=== PATIENT | female | born 1935 | race Caucasian/White ===

== ENCOUNTER 2017-01-15 10:38 | Emergency (ER) | payer OTHER ==
[2017-01-15 11:03] LABS: URINE SOURCE CLEAN CATCH
[2017-01-15 11:10] LABS: MANUAL DIFF NEEDED? NO
[2017-01-15 11:13] LABS: BILIRUBIN URINE NEGATIVE (NEGATIVE); BLOOD URINE NEGATIVE (NEGATIVE); CLARITY SL. CLOUDY (CLEAR); COLOR YELLOW; GLUCOSE URINE NEGATIVE (NEGATIVE); LEUKOCYTES URINE 1+ (NEGATIVE); NITRITE URINE NEGATIVE (NEGATIVE); PROTEIN URINE TRACE mg/dL (NEGATIVE); UROBILINOGEN URINE NORMAL
[2017-01-15 11:18] LABS: BASO% 0.6 % (0.0-0.8); EOS# 0.12 X1000 (0.0-0.7); EOS% 1.9 % (0.0-10.0); HEMATOCRIT 45.6 % (37.0-47.0); HEMOGLOBIN 15.2 g/dL (12.0-16.0); MCHC 33.3 g/dL (33-37); MONO% 9.4 % (1.7-9.3); MPV 10.9 FL (7.4-10.4); NEUT% 63.1 % (42.2-75.2); PLT 191 X1000 (130-400); RBC 4.75 XMIL (4.2-5.4)
[2017-01-15 11:25] LABS: URINE CULTURE PL NEEDED? YES; URINE EPITHELIAL CELLS >10 /HPF (<10); URINE WBC <10 /HPF (<10)
[2017-01-15 11:31] LABS: AGAP 9; ALBUMIN 4.3 g/dL (3.5-5.0); ALKALINE PHOSPHATASE 86 U/L (32-104); AMYLASE 76 U/L (20-200); BUN 14 mg/dL (8-22); CALCIUM 9.9 mg/dL (8.8-10.2); CHLORIDE 102 mmol/L (98-107); COSMO 281; GOT 18 U/L (10-30); GPT 11 U/L (10-36); LIPASE 27 U/L (13-60); POTASSIUM 4.2 mmol/L (3.5-5.1); SODIUM 140 mmol/L (136-145); TCO2 29 mmol/L (25-35); TOTAL PROTEIN 6.8 g/dL (6.3-8.3)
--- NOTE | 2017-01-15 13:19 | PROVIDER DOCUMENTATION ---
HPI-Abdominal Pain/GI Problem - General Source: patient - History of Present Illness-ABD Nature of Presenting Problems: Pt is 81 y/o F presents to the ED with R flank pain. Pt states pain started after she pulled some clothes off the rack at a store. Pt states pain started yesterday. Pt states pain has been constant and sharp since onset. Pt states pain has become worse since yesterday. Pt states breathing deep, movement and palpation makes pain worse. Pt denies SOB and F. Pt denies N/V/D. Abdominal Pain Onset Location: reports: flank (R) Pain Radiation: reports: no radiation Quality of Pain: reports: sharp Severity in ED: reports: mild Onset/Duration: reports: 24 hours ago Timing: reports: still present, constant, getting worse Activities at Onset: reports: light activity Exposure to sick contacts?: No Modifying Factors: improves with: nothing Associated Symptoms: denies: anxiety, arm pain, back/neck pain, chest pain, constipation, cough, diaphoresis, diarrhea, dizziness, EENT symptoms, fatigue, fever/chills, genitourinary problems, headaches, heartburn, joint pain, loss of appetite, malaise, muscle aches, sinus congestion/drainage, nausea, rash, seizure, shortness of breath, sensory/motor loss, pain with inspiration, swelling/mass in abdomen, syncope, vomiting, weakness, trouble walking Last BM: unsure Dark Stools Present?: reports: none noticed Rectal Bleeding: reports: none Rectal Pain: reports: none Emesis Description: reports: none Bruising or Bleeding Gums?: No Similar Symptoms Previously?: Yes Recently seen or treated by another doctor?: No <Antonette Still - Last Filed: 01/15/17 13:56> <Christian Duckworth - Last Filed: 01/15/17 14:07> - General Chief Complaint: Abdominal Pain Stated Complaint: FLANK/ABD PAIN Time Seen by Provider: 01/15/17 12:47 Allergies/Adverse Reactions: Patient Allergies Allergy/AdvReac Type Severity Reaction Status Date / Time No Known Allergies Allergy Verified 07/01/16 19:50 Home Medications: Home Medication List Medication Instructions Recorded Confirmed Last Taken Type Tramadol [Ultram] 50 mg PO 01/15/17 Unknown History Review of Systems - Adult - REVIEW OF SYSTEMS - ADULT Constitutional: denies: chills, fever Eyes: denies: blurred vision, double vision Ears, Nose, Mouth & Throat: denies: ear pain, nose pain, throat pain Cardiovascular: denies: chest pain, heart murmur, irregular heart rate Respiratory: denies: cough, shortness of breath, wheezing Gastrointestinal: denies: abdominal pain, diarrhea, nausea, vomiting Genitourinary: reports: flank pain (R). denies: dysuria, hematuria Musculoskeletal: denies: bone pain, joint pain, neck pain Integumentary: denies: hives, itching Neurological: denies: dizziness/vertigo, headache/migraines Psychiatric: reports: no symptoms reported Endocrine: reports: no symptoms reported Hematologic/Lymphatic: reports: no symptoms reported Allergic/Immunologic: reports: no symptoms reported All Other Systems: Reviewed and Negative <Antonette Still - Last Filed: 01/15/17 13:56> Past History - Adult - PAST MEDICAL HISTORY-ADULT Review of Records: reports: Nursing Assessment Review, Medications Reviewed, Social history reviewed & non-contributory. Major Childhood Illnesses: reports: denies history Cardiovascular: reports: denies history Respiratory: reports: denies history Gastrointestinal: reports: denies history Obstetrical/Gynecological: reports: denies history Genitourinary: reports: denies history Musculoskeletal: reports: denies history Neurological: reports: denies history Endocrine/Immune: reports: denies history Other Conditions: reports: denies history - PRIOR SURGERIES/PROCEDURES Surgical/Procedure History: reports: joint replacement, back/neck - IMMUNIZATION STATUS Childhood Immunizations: See Nurse Assessment Flu Vaccine: See Nurse Assessment - FAMILY HISTORY Family History: reviewed, not pertinent - SOCIAL HISTORY Smoking: denies Substance Use: denies Living Situation: family <Antonette Still - Last Filed: 01/15/17 13:56> Physical Exam-General - PHYSICAL EXAM-ADULT Initial Vital Signs Reviewed: Yes - CONSTITUTIONAL General Appearance: appears well, alert, no apparent distress - EYES Eyes: PERRL/EOMI, pink conjunctivae, fundi clear, no AV nicking - HEAD, EARS, NOSE, MOUTH & THROAT HENMT: normocephalic/atraumatic, moist mucous membranes, normal ENT inspection, TMs normal, pharynx normal - NECK Neck: non-tender, full range of motion, supple, normal inspection - RESPIRATORY Respiratory: chest non-tender, lungs clear, normal breath sounds, no pleuratic chest pain, no respiratory distress, no accessory muscle use - CARDIOVASCULAR Cardiovascular: normal peripheral pulses, regular rate, rhythm, no edema, no gallop, no JVD, no murmur - GASTROINTESTINAL (ABDOMEN) Abdominal Exam: normal bowel sounds, soft, no organomegaly, no pulsatile mass, tenderness (R flank) - LYMPHATIC Lymphatic: no adenopathy - MUSCULOSKELETAL Back Exam: normal inspection, no CVA tenderness, no vertebral tenderness Extremity: normal range of motion, non-tender, normal gait, normal inspection, no pedal edema, no calf tenderness, normal capillary refill - SKIN Integumentary: normal color, normal turgor, warm/dry - NEUROLOGIC Neurologic: grossly normal - PSYCHIATRIC Psych/Mental Status: normal mood/affect, oriented x 3 <Antonette Still - Last Filed: 01/15/17 13:56> Progress - PLAN OF CARE/RESULTS Progress/Plan/Lab Results: Laboratory Tests 01/15/17 01/15/17 01/15/17 11:00 11:05 11:05 WBC 6.40 RBC 4.75 Hgb 15.2 Hct 45.6 MCV 96.0 MCH 32.0 H MCHC 33.3 RDW Std Deviation 12.4 Plt Count 191 MPV 10.9 H Immature Gran % (Auto) 0.0 Neut % (Auto) 63.1 Lymph % (Auto) 25.0 [place] % (Auto) 9.4 H Eos % (Auto) 1.9 Baso % (Auto) 0.6 Immature Gran # (Auto) 0.00 Neut # (Auto) 4.04 Lymph # (Auto) 1.60 [place] # (Auto) 0.60 H Eos # (Auto) 0.12 Baso # (Auto) 0.04 Sodium 140 Potassium 4.2 Chloride 102 Carbon Dioxide 29 Anion Gap 9 BUN 14 Creatinine 0.7 Estimated GFR/1.73 m2 > 60 BUN/Creatinine Ratio 20 Glucose 112 H Calculated Osmolality 281 Calcium 9.9 Total Bilirubin 0.70 AST 18 ALT 11 Alkaline Phosphatase 86 Total Protein 6.8 Albumin 4.3 Globulin 3.0 Albumin/Globulin Ratio 2.0 Amylase 76 Lipase 27 Urine Source CLEAN CATCH Urine Color YELLOW Urine Clarity SL. CLOUDY A Urine pH 5.0 Ur Specific [place] 1.020 Urine Protein TRACE A Urine Ketones NEGATIVE Urine Blood NEGATIVE Urine Nitrite NEGATIVE Urine Bilirubin NEGATIVE Urine Urobilinogen NORMAL Urine Microscopic RBC Not Reportable Urine WBC 1+ A Urine Microscopic WBC <10 Ur Epithelial Cells >10 A Urine Bacteria 2+ Urine Glucose NEGATIVE Orders Category Date Time Status RIBS UNILAT W/PA CHEST RIGHT [RAD] Stat Exams 01/15/17 13:07 Ordered AMYLASE [CHEM] Stat Lab 01/15/17 11:05 Completed CBC WITH DIFF [HEME] Stat Lab 01/15/17 11:05 Completed COMPREHENSIVE METABOLIC PANEL [CHEM] Stat Lab 01/15/17 11:05 Completed LIPASE [CHEM] Stat Lab 01/15/17 11:[address] W/POSS RFLX CULT [URINALYSIS] Stat Lab 01/15/17 11:00 Completed URINE CULTURE [RM] Routine Lab 01/15/17 11:25 Ordered Vital Signs - 24 hr 01/15/17 01/15/17 10:46 12:43 Temperature 98 F Pulse Rate 94 H 67 Respiratory 18 20 Rate Blood Pressure 148/72 142/84 O2 Sat by Pulse 99 97 Oximetry - XRAY 1 XRAY: Right XRAY Study: Chest, Ribs Impression: Normal XRAY Interpretation: nad <Antonette Still - Last Filed: 01/15/17 13:56> Departure <Antonette Still - Last Filed: 01/15/17 13:56> - Departure Time of Disposition Order: 13:59 Certified Medical Emergency: Emergent <Christian Duckworth - Last Filed: 01/15/17 14:07> - Departure DIAGNOSIS: Contusion of rib on right side Qualifiers: Encounter type: initial encounter Qualified Code(s): S20.211A - Contusion of right front wall of thorax, initial encounter Disposition: HOME 01 Condition: Good Additional Instructions: ED Follow Up Instructions: You have been treated by a care provider in the Emergency Department. These instructions are being provided to you so you can have an understanding of how to care for yourself upon discharge. Upon discharge from the Emergency Department, you are responsible for making arrangements for follow-up care by a physician of your choice. Take all prescribed medications as directed. Return to the Emergency Department immediately for any new or worsening symptoms. You may call the Physician Referral phone number at [phone] to obtain a list of Physicians who are taking new patients. Instructions: Rib Contusion Attestation - Scribe Verification/Attestation Scribe:: Antonette Still Acting as Scribe for:: Christian Duckworth Scribe documention review:: This chart was documented by a scribe and accurately reflects the service the provider performed and the decisions made by the provider. <Antonette Still - Last Filed: 01/15/17 13:56> Physician Attestation - Physician Attestation I, the provider, attest to the following statement:: Christian Duckworth Physician documentation Attestation:: This documentation recorded by the scribe accurately reflects the service I personally performed and the decisions made by me. <Christian Duckworth - Last Filed: 01/15/17 14:07>
[2017-01-15 14:25] VITALS: BP 149/82
--- NOTE | 2017-01-15 14:43 | Diag Imaging Result Document ---
PROCEDURE NAME: RIBS UNILAT W/PA CHEST RIGHT - 01/15/2017 PA CHEST WITH RIGHT RIB SERIES, 6 VIEWS: FINDINGS: There is COPD. There is apical pleural thickening bilaterally. There is no evidence of pneumothorax or pleural fluid collections. The heart size and pulmonary vascularity appear to be within normal limits. The ribs appear to be intact. Compared to 07/01/2016 considering differences in inspiration, there has been no significant change. IMPRESSION: COPD and old granulomatous changes. No evidence of acute disease.
== END 2017-01-15 14:25 | disposition home or self-care (01) ==
LOC: P.ED 10:38
DX: S20.211A Contusion of right front wall of thorax, initial encounter (principal); R10.9 Unspecified abdominal pain; R10.819 Abdominal tenderness, unspecified site; Z96.60 Presence of unspecified orthopedic joint implant
CPT/HCPCS: 71101; 80053; 81001; 82150; 83690; 85025; 87088

== ENCOUNTER 2019-06-28 15:21 | Inpatient (IN) ==
--- NOTE | 2019-06-28 16:37 | Diag Imaging Result Doc PS360 ---
EXAM: XRAY HIP W/PELVIS BILAT 3-4VWS 06/28/2019 HISTORY: FELL TECHNIQUE: AP pelvis and bilateral hips seven views COMMENT: There is an intramedullary la nena in the left femur. There has been internal fixation of an intertrochanteric fracture on the left which was demonstrated on 07/01/2016. There is generalized osteopenia. There are degenerative changes in the right hip including osteophytes in the femoral head. There is also apparent calcium pyrophosphate deposition in the symphysis pubis. There is a fracture of the inferior pubic ramus on the left of uncertain age which was not present at the time of the study in 2016. There are degenerative disc changes at L3-4, L4-5, and L5-S1. 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 Fracture of the inferior pubic ramus on the left of uncertain age. Old fracture of the proximal left femur status post internal fixation. Electronically signed by Shady Noland 06/28/2019 4:35 PM
--- NOTE | 2019-06-28 18:11 | PROVIDER DOCUMENTATION ---
This chart was entered by Alan Pires Scribstefanie, acting as scribe for Darlyn Bentley MD. HPI-Musculoskeletal Pain/Inj - GENERAL Chief Complaint: Hip Injury Stated Complaint: FALL / LOWER EXT Time Seen by Provider: 06/28/19 16:34 Source: patient - HX OF PRESENT ILLNESS-MUSKULOSKELTAL Nature of Presenting Problem: Pt is a 83 yof who presents to the ED with a CC of fall injury. Pt states she tripped on a bench and landed on her left hip. Pt reports a hx of hip replacement surgery and a back surgery. Pt reports no loss of consciousness or head injury. Pt has a hx of dementia. Pt states she has a orthopedics appointment on Friday. Quality of Pain: reports: aching, dull Severity in ED: mild Onset/Duration: 1-3 hours ago Timing: still present Any recent injury?: Yes Locality of Occurance: Home Similar Symptoms Previously?: No Recently seen or treated by another doctor?: No - FALL INJURY Location of Pain/Injury: reports: pelvis Pain Radiation: reports: legs (upper) Reason for Fall: reports: tripped Symptoms prior to fall:: reports: none Loss of Consciousness: no loss of consciousness Injury Associated Symptoms: reports: unable to bear weight, weakness, trouble walking - HIP/PELVIS PAIN/INJURY Hip Pain Location: reports: hip (L), pelvis Pain Radiation: reports: upper legs Context / Method of Injury: reports: fall Associated Symptoms: reports: weakness in legs/feet Review of Systems - Adult - REVIEW OF SYSTEMS - ADULT Constitutional: reports: see HPI Eyes: reports: no symptoms reported Ears, Nose, Mouth & Throat: reports: no symptoms reported Cardiovascular: reports: no symptoms reported Respiratory: reports: no symptoms reported Gastrointestinal: reports: no symptoms reported Genitourinary: reports: no symptoms reported Musculoskeletal: reports: see HPI, joint pain, muscle weakness Integumentary: reports: no symptoms reported Neurological: reports: no symptoms reported Psychiatric: reports: no symptoms reported Endocrine: reports: no symptoms reported Hematologic/Lymphatic: reports: no symptoms reported Allergic/Immunologic: reports: no symptoms reported All Other Systems: Reviewed and Negative Past History - Adult - PAST MEDICAL HISTORY-ADULT Review of Records: reports: Old Records Reviewed, Nursing Assessment Review, Medications Reviewed, Social history reviewed & non-contributory. Major Childhood Illnesses: reports: denies history Cardiovascular: reports: denies history Respiratory: reports: denies history Gastrointestinal: reports: denies history Obstetrical/Gynecological: reports: denies history Genitourinary: reports: denies history Musculoskeletal: reports: denies history Neurological: reports: dementia Endocrine/Immune: reports: denies history Other Conditions: reports: denies history - PRIOR SURGERIES/PROCEDURES Surgical/Procedure History: reports: joint replacement, back/neck - IMMUNIZATION STATUS Childhood Immunizations: See Nurse Assessment Flu Vaccine: See Nurse Assessment - FAMILY HISTORY Family History: reviewed, not pertinent - SOCIAL HISTORY Smoking: denies, non-smoker Substance Use: none/never, denies Alcohol Use Frequency: never Physical Exam-Injury Related - Physical Exam-Injury Related General Appearance: alert, mild distress Eyes: PERRL/EOMI, pink conjunctivae Neck: non-tender, full range of motion Respiratory: chest non-tender, lungs clear, normal breath sounds, no pleuratic chest pain Cardiovascular: normal peripheral pulses, regular rate, rhythm, no edema, no gallop Abdominal Exam: non tender, soft Extremity: other (Hip pain) Integumentary: normal color, warm/dry Neurologic: grossly normal, no motor/sensory deficits Psych/Mental Status: normal mood/affect, normal thought content, normal thought process, oriented x 3 Progress - PLAN OF CARE/RESULTS Progress/Plan/Lab Results: Vital Signs - 8 hr 06/28/19 15:31 Temperature 98.1 F Pulse Rate 69 Respiratory Rate 16 Blood Pressure 124/77 O2 Sat by Pulse Oximetry 95 Orders Category Date Time Status CT PELVIS W/O CONTRAST [CT] Stat Exams 06/28/19 17:04 Taken XRAY HIP W/PELVIS BILAT 3-4VWS [RAD] Stat Exams 06/28/19 15:38 Completed CBC WITH DIFF [HEME] Routine Lab 06/29/19 05:00 Ordered CBC WITH DIFF [HEME] Stat Lab 06/28/19 17:55 Ordered COMPREHENSIVE METABOLIC PANEL [CHEM] Routine Lab 06/29/19 05:00 Ordered COMPREHENSIVE METABOLIC PANEL [CHEM] Stat Lab 06/28/19 17:55 Uncollected Transfer/Admit Order [TRANSFER] Routine Transfer 06/28/19 17:49 Ordered - XRAY 1 XRAY: Bilateral XRAY Study: Pelvis, Hip Impression: See EMR Report (EXAM: XRAY HIP W/PELVIS BILAT 3-4VWS 06/28/2019 HISTORY: FELL TECHNIQUE: AP pelvis and bilateral hips seven views COMMENT: There is an intramedullary la nena in the left femur. There has been internal fixation of an intertrochanteric fracture on the left which was demonstrated on 07/01/2016. There is generalized osteopenia. There are degenerative changes in the right hip including osteophytes in the femoral head. There is also apparent calcium pyrophosphate deposition in the symphysis pubis. There is a fracture of the inferior pubic ramus on the left of uncertain age which was not present at the time of the study in 2016. There are degenerative disc changes at L3-4, L4- 5, and L5-S1. 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 Fracture of the inferior pubic ramus on the left of uncertain age. Old fracture of the proximal left femur status post internal fixation. Electronically signed by Shady Noland 06/28/2019 4:35 PM 06/28/19 1635 Interpreting Physician: Shady Noland MD Dictated Date/Time: 06/28/19 1631 cc: Darlyn Bentley MD; Babak Estes MD) - CONSULTS/PCP/HOSPITALIST Notification #1 *Consult/PCP/Hospitalist*: Dr. Sneed Time Discussed: 16:45 Reason/Comments: Made aware of pt and says he will call back Consult Disposition: other #2 Consult: Dr. Sneed Time Discussed: 16:56 Reason/Comments: Made aware of pt and states to admit the pt to hospitalist. Consult Disposition: Admit Departure - Departure Date of Disposition Decision: 06/28/19 Time of Disposition Decision: 18:10 DIAGNOSIS: Inferior pubic ramus fracture Disposition: ADMITTED INPATIENT 09 Certified Medical Emergency: Emergent Condition: Serious Additional Freetext Instructions: ED Follow Up Instructions: You have been treated by a care provider in the Emergency Department. These instructions are being provided to you so you can have an understanding of how to care for yourself upon discharge. Upon discharge from the Emergency Department, you are responsible for making arrangements for follow-up care by a physician of your choice. Take all prescribed medications as directed. Return to the Emergency Department immediately for any new or worsening symptoms. You may call the Physician Referral phone number at [phone] to obtain a list of Physicians who are taking new patients. Referrals and Follow-Ups: Babak Estes MD [Primary Care Provider] - - Critical Care Note This patient required my direct & personal management of CC.: No Attestation - Physician/ ZENA Attestation Patient care was provided by Advanced Practice Provider:: No The physician spent face to face time with patient:: Yes Advanced Practice Provider documentation review:: Supervising physician onsite and consulted in the evaluation and care of this patient. The physician did have a face to face encounter with the patient. This chart was documented by the indicated scribe, (Alan Pires, Carolineibstefanie) and accurately reflects the services I performed and decisions made by me, Darlyn Bentley MD, as attested by the provider's signature.
--- NOTE | 2019-06-28 18:15 | Diag Imaging Result Doc PS360 ---
EXAM: CT PELVIS W/O CONTRAST HISTORY: pelvis fracture TECHNIQUE: CT pelvis without contrast COMPARISON: Plain films taken earlier and CT from 07/01/2016 FINDINGS: Fixation of the prior intertrochanteric fracture of the left hip on the prior CT. The bones are osteopenic. There is a fracture to the left side of the sacrum. No displacement. There are also acute fractures to the left superior and inferior pubic rami. No widening of the pubic symphysis. Long-standing arthritis to each hip. IMPRESSION: Fractures to the left superior and inferior pubic rami and to the left side of the sacrum. This exam was performed using automated exposure control, adjustment of mA or kV according to patient size, and/or use of iterative reconstruction technique. Electronically signed by Jonnathan Hood 06/28/2019 6:13 PM
--- NOTE | 2019-06-28 18:43 | HISTORY AND PHYSICAL ---
ADDENDUM: Patient seen and examined by myself. Full note dictated and discussed with the nurse practitioner. Patient was ambulating earlier. She had gone to her primary care and she was actually shopping when she tripped and fell. She landed on her left hip and started having immediate pain. Does have a known history of dementia. Her x-rays showed a pubic rami fracture as well as an old fracture of the left proximal femur status post internal fixation. We are going to transfer her to [facility] for ortho's input. Further orders as needed. cc: Jatinder Bernstein MD
--- NOTE | 2019-06-28 18:48 | HISTORY AND PHYSICAL ---
CHIEF COMPLAINT: Fall. HISTORY OF PRESENT ILLNESS: This is an 83-year-old female with a history of dementia who presented to the emergency room complaining of left hip pain. The patient states that she got her foot stuck in a bench, lost her footing, and fell. She landed on her left hip and ever since she has had left hip pain with movement and she is unable to bear weight. The patient does have a history of left hip fracture, undergoing a closed reduction with intramedullary fixation of the hip in June of 2016. X-ray of the hip and pelvis bilateral revealed osteoarthritis in both hips, fracture of the inferior pubic ramus on the left of uncertain age, and an old fracture of the proximal left femur status post internal fixation. PAST MEDICAL HISTORY: Osteoporosis, dementia. PAST SURGICAL HISTORY: Back surgery years ago and intramedullary nailing of the left femur 2016. SOCIAL HISTORY: She denies any alcohol, tobacco, or illicit drug use. ALLERGIES: No known drug allergies. HOME MEDICATIONS: None. REVIEW OF SYSTEMS: Discussed with patient with pertinent positives stated in HPI. She denied any syncope, dizziness, chest pain, palpitations, any fevers, chills, shortness of breath, cough, nausea, vomiting, diarrhea, constipation, black or bloody vomitus or stools, hematuria, dysuria, frequency, urgency. PHYSICAL EXAMINATION: GENERAL: This is an 83-year-old female who is lying on the bed in the ER, in no distress. VITAL SIGNS: Blood pressure is 124/77 with heart rate of 69, respirations are 18, temperature is 98.1 degrees oral, with room air saturations 96%. HEENT: Head is normocephalic, atraumatic. Mucous membranes are moist. NECK: Supple. Trachea midline. CARDIOVASCULAR: Regular rate and rhythm. S1 and S2 appreciated. She has no lower extremity edema. Peripheral pulses are palpable x4 extremities. Calves are nontender to palpation. PULMONARY: Breath sounds are clear. No increased work of breathing noted. Chest rises and falls symmetric with respiration. Chest wall is nontender to palpation. GASTROINTESTINAL: Abdomen is soft, nontender, nondistended. Bowel sounds in all 4 quadrants. NEUROLOGIC: She is alert and oriented. SKIN: Warm and dry. LABS: No labs have been drawn. DIAGNOSTICS: X-ray revealed osteoarthritis in both hips, fracture of the inferior pubic ramus on the left of uncertain age. CT of the pelvis reveals fractures to the left superior and inferior pubic rami and to the left side of the sacrum. ASSESSMENT: 1. Fall with subsequent fracture to left superior and inferior pubic rami and the left side of the sacrum. 2. Dementia. PLAN: The patient will be admitted to [place]. consult Dr. Sneed and Orthopedics. CBC and CMP today and repeat in the morning. Telemetry, Zofran for nausea. GI prophylaxis, Prilosec. Plan discussed with Dr Bernstein. Further treatments pending hospital course. Dictated by KELTON Albarran for Jatinder Bernstein MD cc: KELTON Albarran MD [facility]
[2019-06-28 19:13] LABS: BASO# 0.01 X1000 (0.0-0.2); BASO% 0.1 % (0.0-0.8); HEMATOCRIT 40.8 % (37.0-47.0); HEMOGLOBIN 13.7 g/dL (12.0-16.0); IMM GRAN# 0.01 X1000 (0.0-0.04); IMM GRAN% 0.1 % (0.0-0.5); LYMPH# 0.61 X1000 (1.2-3.4); MCH 31.6 PG (27-31); MCHC 33.6 g/dL (33-37); MCV 94.2 FL (81-99); MONO# 0.52 X1000 (0.11-0.59); MONO% 5.9 % (1.7-9.3); NEUT# 7.62 X1000 (1.4-6.5); NEUT% 86.9 % (42.2-75.2); PLT 133 X1000 (130-400); RBC 4.33 XMIL (4.2-5.4); RDW 12.6 % (11.5-14.5); WBC 8.77 X1000 (4.8-10.8)
[2019-06-28 19:16] LABS: AGAP 12; ALKALINE PHOSPHATASE 69 U/L (32-104); BUN 16 mg/dL (8-22); CALCIUM 8.9 mg/dL (8.8-10.2); CHLORIDE 105 mmol/L (98-107); COSMO 287; CREATININE 0.6 mg/dL (0.5-0.9); ESTIMATED GFR > 60; GLUCOSE 179 mg/dL (70-104); GOT 29 U/L (10-30); GPT 20 U/L (10-36); SODIUM 141 mmol/L (136-145); TCO2 24 mmol/L (25-35); TOTAL PROTEIN 6.4 g/dL (6.3-8.3)
[2019-06-28] MEDS ORDERED: ZOFRAN IV PRN (19:57)
[2019-06-28 20:02] LABS: LYMPHS 6 % (21-51); MONO 4 % (1-9); SEGS 90 % (42-75)
[2019-06-29] MEDS: TYLENOL PO PRN ×2 (02:19→10:09)
[2019-06-29 03:28] LABS: URINE SOURCE CLEAN CATCH
[2019-06-29 03:44] LABS: BILIRUBIN URINE NEGATIVE (NEGATIVE); BLOOD URINE NEGATIVE (NEGATIVE); COLOR YELLOW; GLUCOSE URINE TRACE mg/dL (NEGATIVE); KETONE URINE NEGATIVE (NEGATIVE); LEUKOCYTES URINE NEGATIVE (NEGATIVE); NITRITE URINE NEGATIVE (NEGATIVE); PH URINE 5.5; PROTEIN URINE TRACE mg/dL (NEGATIVE); SP GRAVITY URINE 1.029; TURBIDITY URINE CLEAR (CLEAR); UROBILINOGEN URINE NORMAL (NORMAL)
[2019-06-29 03:55] LABS: UR EPITHELIAL CELLS <10 /HPF (<10); URINE BACTERIA NEGATIVE /HPF; URINE RBC <10 /HPF (<10); URINE WBC <10 /HPF (<10)
[2019-06-29 04:24] LABS: URINE CASTS NONE SEEN; URINE CRYSTALS CA OXALATE PRESENT; URINE SMALL ROUND CELLS NONE SEEN; URINE YEAST NONE SEEN
[2019-06-29 06:07] LABS: BASO# 0.03 X1000 (0.0-0.2); BASO% 0.4 % (0.0-0.8); EOS# 0.13 X1000 (0.0-0.7); EOS% 1.9 % (0.0-10.0); HEMATOCRIT 39.2 % (37.0-47.0); HEMOGLOBIN 13.1 g/dL (12.0-16.0); LYMPH# 1.06 X1000 (1.2-3.4); LYMPH% 15.3 % (20.5-51.1); MCH 31.4 PG (27-31); MCHC 33.4 g/dL (33-37); MONO# 0.61 X1000 (0.11-0.59); MONO% 8.8 % (1.7-9.3); MPV 11.7 FL (7.4-10.4); NEUT# 5.08 X1000 (1.4-6.5); NEUT% 73.6 % (42.2-75.2); PLT 135 X1000 (130-400); RBC 4.17 XMIL (4.2-5.4); RDW 12.7 % (11.5-14.5); WBC 6.91 X1000 (4.8-10.8)
[2019-06-29 06:22] LABS: AGAP 9; ALB/GLOB RATIO 1.7; ALBUMIN 3.7 g/dL (3.5-5.0); ALKALINE PHOSPHATASE 60 U/L (32-104); BUN 13 mg/dL (8-22); CALCIUM 8.9 mg/dL (8.8-10.2); CHLORIDE 107 mmol/L (98-107); COSMO 281; CREATININE 0.5 mg/dL (0.5-0.9); ESTIMATED GFR > 60; GLUCOSE 124 mg/dL (70-104); GOT 26 U/L (10-30); GPT 18 U/L (10-36); POTASSIUM 3.5 mmol/L (3.5-5.1); SODIUM 140 mmol/L (136-145); TCO2 24 mmol/L (25-35); TOTAL PROTEIN 5.9 g/dL (6.3-8.3)
[2019-06-29] MEDS: PRILOSEC PO SCH (06:51)
--- NOTE | 2019-06-29 10:26 | EKG Report ---
Test Performed on : 06/29/2019 10:17:46 AM Test Reason : preop Blood Pressure : / mmHG Vent. Rate : 060 BPM Atrial Rate : 060 BPM P-R Int : 196 ms QRS Dur : 088 ms QT Int : 436 ms P-R-T Axes : 069 -33 064 degrees QTc Int : 436 ms Normal sinus rhythm. 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 are no longer present Questionable change in initial forces of Septal leads Confirmed by Jean-Claude HAMEED, Leonard Anguiano ([id number]) on 06/29/2019 12:07:38 PM
--- NOTE | 2019-06-29 10:30 | Diag Imaging Result Doc PS360 ---
EXAM: CHEST-PORTABLE 06/29/2019 HISTORY: dyspnea TECHNIQUE: AP portable at 1022 COMMENT: The appearance of the chest has not changed significantly since 01/15/2017. The lungs are clear and the heart and pulmonary vascularity are within normal limits. IMPRESSION: Stable chest. Electronically signed by Shady Noland 06/29/2019 10:28 AM
--- NOTE | 2019-06-29 13:37 | PROGRESS NOTE ---
DATE: 06/29/2019 SUBJECTIVE: The patient is resting comfortably in bed. She has no complaints at this time. OBJECTIVE: Vital Signs: Temperature 97.5 degrees, blood pressure 119/66, heart rate 64, respirations 16, O2 saturation is 95% on room air. General: This is a chronically ill-appearing elderly female, lying in bed in no acute distress. Heart: S1, S2 normal. Regular rate and rhythm. Lungs: Clear to auscultation bilaterally. Abdomen: Positive bowel sounds. Soft, nontender, nondistended. Extremities: No edema, no cyanosis. Neurologic: The patient is alert and oriented x3. DIAGNOSTIC STUDIES: Sodium 140, potassium 3.5, chloride 107, CO2 of 24, BUN 13, creatinine 0.5. White blood cell count 6.9, hemoglobin 13, hematocrit 39, platelets 135,000. UA: Trace protein. Chest x-ray shows no acute abnormality. ASSESSMENT AND PLAN: 1. Fractures of the left superior and inferior pubic rami and the left side of the sacrum. We will await further recommendations from the orthopedic surgeon. 2. Dementia. Aware. 3. Deep vein thrombosis prophylaxis. The patient is currently on SCDs. cc: Romina De La O MD
[2019-06-29] MEDS ORDERED: STERILE WATER INJ. INJ ONE (15:31)
[2019-06-29] MEDS ORDERED: GEODON IM ONE (15:31)
--- NOTE | 2019-06-29 18:43 | ORTHOPAEDICS CONSULTATION ---
DATE: 06/29/2019 HISTORY OF PRESENT ILLNESS: Ms Cage 83-year-old female with a history of dementia presented emergency department with left hip pain. It is hard to get exactly what the story was but it sounds like there may have been a fall. She had a hip fracture back in June 2016 and underwent trochanteric femoral nailing and then she started to have some pain on this left side. ER worked her up and found superior and inferior pubic ramus fracture as well as a left sacral fracture and she was admitted per the medicine service. PAST MEDICAL HISTORY: Dementia and osteoporosis. PAST SURGICAL HISTORY: Back surgery and intramedullary nailing of the femur 2016. SOCIAL HISTORY: She denies any tobacco or alcohol use. ALLERGIES: No known drug allergies. HOME MEDICATIONS: Per the medical record. REVIEW OF SYSTEMS: Positive for this left hip pain. All other systems are essentially negative. PHYSICAL EXAMINATION: Pleasant elderly female lying in bed, no acute distress.Head and Neck: Normocephalic, atraumatic. Respirations: Nonlabored breathing. Cardiovascular: Regular pulse. Abdomen: Nondistended. A little bit tender palpation when I push on the iliac wings. No tenderness palpation down either leg. She is able to move the toes up and down very well. She has good sensation to light touch to the toes. CT imaging shows a nondisplaced inferior and superior pubic ramus fracture and nondisplaced sacral ala fracture. ASSESSMENT: 1. Left sacral ala fracture. 2. Left inferior and superior pubic rami fractures. PLAN: Ms. Cage can be weightbearing as tolerated bilateral lower extremities. Physical therapy will need to work with her getting her up and moving and then I discussed with her that it may be painful for about a 6 to 8 week period while these fractures heal but she can be weight bear as tolerated the whole time. She follow with me in clinic on an outpatient basis in about 2 weeks after she is discharged. cc: Gui Khan MD
[2019-06-30 05:35] LABS: HEMOGLOBIN 13.5 g/dL (12.0-16.0); MCH 31.4 PG (27-31); MCHC 33.8 g/dL (33-37); MPV 11.5 FL (7.4-10.4); RBC 4.3 XMIL (4.2-5.4); RDW 12.8 % (11.5-14.5); WBC 6.65 X1000 (4.8-10.8)
[2019-06-30 05:51] LABS: AGAP 10; BUN 9 mg/dL (8-22); CALCIUM 9.1 mg/dL (8.8-10.2); CHLORIDE 108 mmol/L (98-107); COSMO 285; CREATININE 0.5 mg/dL (0.5-0.9); ESTIMATED GFR > 60; GLUCOSE 119 mg/dL (70-104); POTASSIUM 3.7 mmol/L (3.5-5.1); SODIUM 143 mmol/L (136-145); TCO2 25 mmol/L (25-35)
[2019-06-30] MEDS: PRILOSEC PO SCH (06:10)
[2019-06-30] MEDS: ARICEPT PO SCH (09:13)
[2019-06-30] MEDS: NAMENDA XR PO SCH (09:13)
[2019-06-30] MEDS: MIRALAX PO SCH ×2 (09:18→21:40)
[2019-06-30] MEDS: COLACE PO SCH (09:18)
[2019-06-30] MEDS: SENOKOT PO SCH (09:19)
--- NOTE | 2019-06-30 14:05 | PROGRESS NOTE ---
DATE: 06/30/2019 SUBJECTIVE: The patient is resting comfortably in bed. She complains of pain in her left hip when she tries to stand or move. OBJECTIVE: Vital Signs: Temperature 98.6 degrees, blood pressure 137/82, heart rate 85, respirations 18, O2 saturation 98% on room air. General: This is a chronically ill-appearing elderly female, lying in bed in no acute distress. Heart: S1, S2 normal. Regular rate and rhythm. Lungs: Equal air entry bilaterally. No wheezing. No rales. No rhonchi. Abdomen: Positive bowel sounds. Soft, nontender, nondistended. Extremities: No edema, no cyanosis. Neurologic: The patient is oriented to self and place. LABORATORY DATA: White blood cell count 6.6, hemoglobin 13, hematocrit 40, platelets 133,000. Sodium 143, potassium 3.7, chloride 108, CO2 25, BUN 9, creatinine 0.5. ASSESSMENT AND PLAN: 1. A fracture of the left superior and inferior pubic rami in the left side of the sacrum. The patient has been seen by the orthopedic surgeon who has recommended nonoperative management. He is recommending physical therapy. We will consult with [facility] for inpatient rehab placement. 2. Dementia. Continue on Aricept. 3. Constipation. Continue on MiraLAX and Senokot. 4. Deep vein thrombosis prophylaxis. We will start the patient on Lovenox. cc: Romina De La O MD
[2019-06-30] MEDS: LOVENOX SUBQ SCH (14:52)
[2019-07-01] MEDS: TYLENOL PO PRN (00:14)
[2019-07-01] MEDS ORDERED: HALDOL IM PRN (01:22)
[2019-07-01] MEDS ORDERED: HALDOL IM ONE (01:29)
[2019-07-01] MEDS: PRILOSEC PO SCH ×2 (06:17→09:44)
[2019-07-01 06:20] LABS: AGAP 12; BUN 10 mg/dL (8-22); CALCIUM 8.3 mg/dL (8.8-10.2); CHLORIDE 106 mmol/L (98-107); COSMO 287; CREATININE 0.5 mg/dL (0.5-0.9); ESTIMATED GFR > 60; GLUCOSE 120 mg/dL (70-104); POTASSIUM 3.9 mmol/L (3.5-5.1); SODIUM 144 mmol/L (136-145); TCO2 26 mmol/L (25-35)
[2019-07-01] MEDS ORDERED: FLEET MINERAL OIL ENEMA PR ONE (09:18)
[2019-07-01] MEDS: MIRALAX PO SCH (09:35)
[2019-07-01] MEDS: COLACE PO SCH (09:36)
[2019-07-01] MEDS: ARICEPT PO SCH (09:36)
[2019-07-01] MEDS: NAMENDA XR PO SCH (09:36)
[2019-07-01] MEDS: SENOKOT PO SCH (09:42)
--- NOTE | 2019-07-01 09:58 | PROGRESS NOTE ---
DATE: 07/01/2019 SUBJECTIVE: The patient was noted to be agitated last night. She received Haldol early this morning and she is currently resting. OBJECTIVE: Vital Signs: Temperature 97 degrees, blood pressure 139/81, heart rate 76, respirations 18, O2 saturation is 100% on room air. General: This is a chronically ill- appearing, elderly female lying in bed, in no acute distress. Heart: S1, S2 normal. Regular rate and rhythm. Lungs: Clear to auscultation bilaterally. No wheezing. No rales. No rhonchi. Abdomen: Positive bowel sounds. Soft, nontender, nondistended. Extremities: No edema. No cyanosis. Neurologic: The patient is oriented to self only. Labs: Reviewed. ASSESSMENT AND PLAN: 1. Left superior and inferior pubic rami fracture. Continue with nonoperative management. Continue with physical therapy. The patient will need inpatient rehab placement. 2. Dementia. Continue on Aricept. 3. Constipation. Continue on the scheduled laxative therapy. Will also add an enema to be given today. 4. Deep vein thrombosis prophylaxis. Continue on Lovenox. cc: Romina De La O MD [facility]TDD
[2019-07-01] MEDS: LOVENOX SUBQ SCH (14:02)
--- NOTE | 2019-07-01 17:00 | Diag Imaging Result Doc PS360 ---
ABDOMEN FLAT/UPRIGHT - 07/01/2019 INDICATION: constipation COMPARISON: None FINDINGS: There is a nonobstructive bowel gas pattern. No significant constipation. No free air or abdominal calcifications. IMPRESSION: Negative exam. Electronically signed by Sylvain Neff 07/01/2019 4:57 PM
[2019-07-02 05:56] LABS: AGAP 11; BUN 10 mg/dL (8-22); CALCIUM 9.3 mg/dL (8.8-10.2); CHLORIDE 104 mmol/L (98-107); COSMO 279; CREATININE 0.5 mg/dL (0.5-0.9); ESTIMATED GFR > 60; GLUCOSE 117 mg/dL (70-104); POTASSIUM 3.7 mmol/L (3.5-5.1); SODIUM 140 mmol/L (136-145); TCO2 25 mmol/L (25-35)
[2019-07-02] MEDS: PRILOSEC PO SCH (06:03)
[2019-07-02] MEDS: NAMENDA XR PO SCH (08:34)
[2019-07-02] MEDS: ARICEPT PO SCH (08:34)
[2019-07-02] MEDS: COLACE PO SCH (08:34)
[2019-07-02] MEDS ORDERED: MIRALAX PO SCH (09:00)
[2019-07-02 11:29] VITALS: BP 149/78
--- NOTE | 2019-07-03 19:07 | DISCHARGE SUMMARY ---
ADMISSION DATE: 06/28/2019 DISCHARGE DATE: 07/02/2019 FINAL DISCHARGE DIAGNOSES: 1. Fracture of the left superior and inferior pubic rami. 2. Dementia. 3. Constipation. CONSULTATIONS: Ortho consultation with Dr. Khan. IMAGIN. 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 Fracture of the inferior pubic ramus on the left of uncertain age. 2. Pelvic CT which revealed fractures to the left superior and inferior pubic rami. HOSPITAL COURSE: Ms Cage is an 83-year-old female with a history of dementia who was brought to the ER after suffering a fall. Upon arrival to the ER an x-ray of the hip and pelvis was done which revealed a fracture of the inferior pubic ramus on the left. The patient was transferred to [facility] and was seen by the orthopedic surgeon who recommended nonoperative management. Physical therapy was recommended by the surgeon. The patient was started on laxative therapy to aid with having regular bowel movement. The patient's family opted for the patient to go home since they have sitters that can watch the patient 24 hours a day 7 days a week and they declined inpatient rehab placement. The patient was cleared for discharge home on 07/02/2019. DISCHARGE MEDICATIONS: 1. MiraLAX 17 g oral daily. 2. Tramadol 50 mg oral every 6 hours p.r.n. for pain. 3. Lipitor 10 mg oral at bedtime. 4. Namenda/Aricept 1 tab oral daily. DISCHARGE DIET: Regular diet. ACTIVITY: Weightbearing as tolerated. FOLLOWUP INSTRUCTIONS: The patient will need to follow up with Dr. Khan in 1 to 2 weeks. cc: Romina De La O MD [facility]
== END 2019-07-02 11:44 | disposition home health service (06) | DRG 536 ==
LOC: P.ED 15:21 → SUATTDRO 15:22 → 4N 18:39
PROVIDERS: ATTEND Internal Medicine